=== PATIENT | female | born 1990 | race Caucasian/White ===

== ENCOUNTER 2016-12-12 16:53 | Outpatient (CLI) | payer OTHER ==
--- NOTE | 2016-12-12 16:59 | Non Stress Test Report ---
Non Stress Test Datetime Report Generated by CPN: 12/12/2016 16:58 DEMOGRAPHIC EGA NST: 33.2 INDICATION Indication for Study: Other Indication for Study (NST) Other: LC MONITORING Monitor Explained: Monitor Explained; Test Explained; Patient Verbalized Understanding Time on Monitor: 12/08/2016 16:51 Time off Monitor: 12/08/2016 18:03 NST Duration: 72 NST INTERVENTIONS NST Interventions: PO Hydration Physician Notified NST: K. Ndiaye CNM BABY A: [id number] BABY A Movement : Present Contraction Frequency : irreg FHR Baseline : 130 Accelerations : 15X15 Decelerations : None Variability : Moderate 6-25bpm NST Review: Meets Criteria for Reactive NST NST Review and Verified By : Lisa Polanco RN NST Results: Reactive NST REPORT Report Trigger: Send Report
--- NOTE | 2016-12-12 17:27 | Non Stress Test Report ---
Non Stress Test Datetime Report Generated by CPN: 12/12/2016 17:26 DEMOGRAPHIC EGA NST: 33.6 INDICATION Indication for Study: Ordered by Provider MONITORING Monitor Explained: Monitor Explained; Test Explained; Patient Verbalized Understanding Time on Monitor: 12/12/2016 17:04 Time off Monitor: 12/12/2016 17:24 NST Duration: 20 NST INTERVENTIONS NST Interventions: PO Hydration; Reposition Patient Physician Notified NST: Dr. Reece BABY A Movement : Present Contraction Frequency : x0 FHR Baseline : 130 Accelerations : 15X15 Decelerations : None Variability : Moderate 6-25bpm NST Review: Meets Criteria for Reactive NST NST Review and Verified By : Jayashree Hernandez RNC NST Results: Reactive NST REPORT Report Trigger: Send Report
== END 2016-12-12 17:27 | disposition home or self-care (01) ==
LOC: LC 16:53
PROVIDERS: ATTEND Obstetrics & Gynecology
PROC: 4A1HXCZ Monitoring of Products of Conception, Cardiac Rate, External Approach (ICD-10-PCS; principal; 2016-12-12)
DX: O47.03 False labor before 37 completed weeks of gestation, third trimester (principal); Z3A.33 33 weeks gestation of pregnancy
CPT/HCPCS: 59025